=== PATIENT | female | born 1960 | race Caucasian/White ===

== ENCOUNTER 2017-10-25 05:59 | Day surgery (SDC) | payer OTHER ==
[2017-10-25] MEDS ORDERED: FENTAnyl 50 MCG/ML VIAL (08:34)
[2017-10-25] MEDS ORDERED: MIDAZOLAM 1 MG/ML 2 ML INJ ×2 (08:34)
== END 2017-10-25 09:18 | disposition home or self-care (01) ==
LOC: GIL 05:59
DX: K62.89 Other specified diseases of anus and rectum (principal); K64.8 Other hemorrhoids
CPT/HCPCS: 45380; 88305